=== PATIENT | female | born 1980 | race Caucasian/White ===

== ENCOUNTER 2019-09-26 10:03 | Inpatient (IN) | payer OTHER ==
[2019-09-26] MEDS ORDERED: CLINDAMYCIN 900MG/D5W 900 MG/50 ML IVPB IV ONE (10:46)
[2019-09-26] MEDS ORDERED: CLINDAMYCIN 900MG/D5W 900 MG/50 ML IVPB IV SCH (11:00)
[2019-09-26] MEDS ORDERED: Ringers Lactate 1,000 ML IV PRN (11:16)
[2019-09-26] MEDS ORDERED: METHYLERGONOVINE 0.2MG/ML AMP IM PRN ×2 (11:16→12:48)
[2019-09-26] MEDS ORDERED: CARBOPROST TROME 250 MCG/ML IM PRN ×2 (11:16→12:48)
[2019-09-26 12:00] LABS: Absolute Lymphocytes (CBC) 1.1 K/uL (0.7-4.9); Basophils % 0.2 % (0-1.3); Hematocrit 33.2 % (36.0-45.0); Lymphocytes % 10.7 % (15.3-44.8); MPV 9.4 fL (7.6-11.3); RBC Red Blood Cell Count 3.67 M/uL (3.86-4.86)
[2019-09-26] MEDS ORDERED: Ringers Lactate 1,000 ML IV SCH (12:00)
[2019-09-26] MEDS ORDERED: LIDOCAINE 1% MPF 30 ML VIAL ONE (12:01)
[2019-09-26] MEDS ORDERED: OXYTOCIN/LR 20 UNIT/1,000 ML BAG IV ONE (12:01)
[2019-09-26 12:04] LABS: Urine Appearance CLEAR; Urine Bilirubin NEGATIVE (NEG); Urine Blood 1+ (NEG); Urine Color YELLOW; Urine Glucose NEGATIVE (NEG); Urine Protein NEGATIVE (NEG); Urine pH 7.5 (5.0-7.0)
[2019-09-26 12:23] VITALS: BMI 25.0
[2019-09-26 12:32] LABS: Urine Microscopic Reflex ORDER UMIC
[2019-09-26 12:34] LABS: Urine Bacteria 20-50 /HPF (<20); Urine Culture Reflex Order REFLEXED; Urine Mucus SLIGHT /HPF (NONE SEEN)
[2019-09-26] MEDS ORDERED: ONDANSETRON 4 MG (ODT) TAB PO PRN (12:48)
[2019-09-26] MEDS ORDERED: Oxycodone HCl/Acetaminophen 1 TAB TAB PO PRN (12:48)
[2019-09-26] MEDS ORDERED: METHYLERGONOVINE 0.2 MG TAB PO PRN (12:48)
--- NOTE | 2019-09-26 12:54 | P.BOP ---
Preoperative diagnosis: 38+ wk , labor Postoperative diagnosis: same, viable male Primary procedure: SCVD viable male Secondary procedure: repair of second degree midline laceration Estimated blood loss: 150ml Anesthesia: Local (for repair) Complications: None Transferred to: Other (273) Condition: Good
[2019-09-26] MEDS ORDERED: OXYTOCIN/LR 20 UNIT/1,000 ML BAG IV SCH (13:00)
--- NOTE | 2019-09-26 16:36 | HP ---
Date of Admission: 09/26/2019 History Of Present Illness: Ms. Canales is a 39-year-old female, 2, para 1 -0-0-1, now at approximately 38+ weeks' gestation. She has been followed by me since early with history of advanced maternal age, but no other complications. She started noticing contraction s about 6 o'clock this morning. They became more frequent. She presented to Labor and Delivery wher e she was noted to be 4 to 4+ cm dilated. has been active. Past Medical History: Please see record. Family History: Please see record. Review of Systems: She reports no recent cough, cold, fever, or chills. No recent nausea or vomiting. No breast knots or lumps. No bowel or bladder issues. has been active. She denies rupture of membranes or s ignificant vaginal bleeding. She has had a little bit of a bloody show. She denies recurring bowel issues. Physical Examination: General: A pleasant female, in no apparent distress. Neck: Supple without adenopathy or thyromegaly. Lungs: Clear. Cardiac: Regular rate and rhythm without murmurs. Breasts: Not examined. Abdomen: Estimated weight approximately 6+ to 7+ pounds. Pelvic: Cervix now 6+ to 7 cm dilated with bulging membranes, vertex presentation. Extremities: No cyanosis, clubbing, or edema. Impression: 38+ weeks' , advanced maternal age, active labor. Plan: Patient is beta-strep positive. Has been given 1 dose of Cleocin. We will perform rupture of membranes after patient decides whether or not she would like an epidural or not. ROSA MARIA/KULDEEP Voice ID: [id number]
[2019-09-26] MEDS ORDERED: CLINDAMYCIN INJ 900 MG in NA CHLORIDE 0.9% 50 ML IV SCH (17:00)
[2019-09-26] MEDS: IBUPROFEN 600 MG TAB PO PRN (20:25)
[2019-09-27 05:43] LABS: RPR (Rapid Plasma Reagin) NON-REACT (NON-REACT)
[2019-09-27 06:41] VITALS: TEMP 98.3
[2019-09-27] MEDS: IBUPROFEN 600 MG TAB PO PRN (09:44)
[2019-09-27] MEDS ORDERED: IBUPROFEN 600 MG TAB ONE (09:45)
[2019-09-27 11:49] VITALS: BP 114/74
--- NOTE | 2019-09-28 01:50 | DS ---
Date of Discharge: 09/27/2019 History: A 39-year-old, 2, para 1 at 38 plus weeks gestation, came in, in spontaneous labor, delivered uneventfully of a term infant, good Apgars, second-degree midline laceration repaired. No rmal estimated blood loss. She is Rh positive, immune to Rubella. She has had her Tdap administrati on during her . She is breast feeding. She has no questions or problems this morning. David l be dismissed after stone spreader operator sees the baby. She knows to call Labor and Delivery over the [address] [address] if she has any problems and that phone number has been provided. Final Diagnoses: Term intrauterine . Spontaneous vaginal delivery. TAZ/KULDEEP Voice ID: [id number] Report ID: [id number]
[2019-09-29 04:44] LABS: HBsAG Nonreactive (Nonreactive)
--- NOTE | 2019-09-30 14:46 | DN ---
Surgeon: Kuldeep Ham MD Ms. Canales is a 39-year-old female, 2, para 1-0-0-1, admitted in [facility]. She had a first stage of labor of approximately 6 hours and 24 minutes, second stage of labor o f 3 minutes. She delivered by spontaneous controlled vaginal delivery a 7 pound 12 ounce male . After delayed cord clamping, this was cut and placed on mother's upper abdomen. Cord blood was obtained. Placenta was spontaneously expelled and appeared to be intact. Intrauterine examinat ion revealed no retained placental fragments. She suffered a midline second-degree perineal lacerati on repaired with 3-0 Vicryl suture in the usual fashion. Local infiltration with xylocaine for anest hesia. She was given 1 dose of Cleocin 900 mg for positive beta strep history. Quantitative blood l oss was 44 mL. MPG/MODL Voice ID: [id number] Report ID: [id number]
== END 2019-09-27 13:50 | disposition home or self-care (01) | DRG 807 ==
LOC: L&D 10:03 → 2ND-WC 10:43
PROVIDERS: ADMIT Specialist; ATTEND Specialist
PROC: 0KQM0ZZ Repair Perineum Muscle, Open Approach (ICD-10-PCS; principal; 2019-09-26)
PROC: 10E0XZZ Delivery of Products of Conception, External Approach (ICD-10-PCS; 2019-09-26)
DX: O70.1 Second degree perineal laceration during delivery (principal); Z37.0 Single live birth; O99.824 Streptococcus B carrier state complicating childbirth; Z3A.38 38 weeks gestation of pregnancy
CPT/HCPCS: 36415; 81003; 81015; 85014; 85025; 86592; 86901; 87077; 87086; 87088; 87186; 87340; J2210; J2590; J7120